=== PATIENT | male | born 1990 | race African-American/Black ===

== ENCOUNTER 2023-11-19 17:30 | Emergency (ER) | payer BC ==
[2023-11-19] MEDS: prednisoLONE Acetate 1% Ophth Susp 5 ML Bottle EYEBOTH ONE (19:29)
[2023-11-19] MEDS: Cetirizine 10 MG Tab PO ONE (19:29)
== END 2023-11-19 19:36 | disposition home or self-care (01) ==
LOC: JD.ED 17:30
DX: H10.13 Acute atopic conjunctivitis, bilateral (principal)
CPT/HCPCS: 99282; A9270-GY